=== PATIENT | female | born 1955 | race American Indian/Alaskan Native ===

== ENCOUNTER 2020-07-11 11:36 | Emergency (ER) | payer SELFPAY ==
--- NOTE | 2020-07-11 12:52 | Event Note ---
ED Screening Note Date of service: 07/11/20 Time: 12:51 ED Screening Note: 64-year-old female presents to the ED complaining of right-sided flank pain and vaginal bleeding x1 week. Status post mastectomy on chemo treatments. This initial assessment/diagnostic orders/clinical plan/treatment(s) is/are subject to change based on patients health status, clinical progression and re- assessment by fellow clinical providers in the ED. Further treatment and workup at subsequent clinical providers discretion. Patient/guardian urged not to elope from the ED as their condition may be serious if not clinically assessed and managed. Initial orders include: labs, ua,
[2020-07-11 14:51] LABS: Basophils # (Auto) 0.1 K/mm3 (0.0-0.1); Basophils % (Auto) 1.5 % (0.0-1.8); Hematocrit 30.9 % (30.3-42.9); Hemoglobin 10.4 gm/dl (10.1-14.3); Lymphocytes # (Auto) 1.3 K/mm3 (1.2-5.4); Lymphocytes % (Auto) 18.2 % (13.4-35.0); Mean Corpuscular HGB Conc 34 % (30-34); Mean Corpuscular Volume 98 fl (79-97); Monocytes # (Auto) 1.1 K/mm3 (0.0-0.8); Platelet Count 159 K/mm3 (140-440); Red Blood Count 3.14 M/mm3 (3.65-5.03); Red Cell Distribution Width 16.9 % (13.2-15.2)
[2020-07-11 15:01] LABS: Alanine Aminotransferase 27 units/L (7-56); Albumin 2.2 g/dL (3.9-5); Blood Urea Nitrogen 9 mg/dL (7-17); Hemolysis Index 4
[2020-07-11 15:38] LABS: Bilirubin,Urine MOD (Negative); Blood,Urine NEG (Negative); Color,Urine Amber (Yellow); Mucus,Urine 3+ /HPF
[2020-07-11 15:50] LABS: Ictotest,Urine Positive (Negative)
[2020-07-11 15:50] LABS: BUN/Creatinine Ratio 23
[2020-07-11 18:45] VITALS: BP 122/71
[2020-07-11] MEDS ORDERED: ONDANSETRON 4 MG/2 ML INJ IV STA (19:07)
[2020-07-11] MEDS ORDERED: MORPHINE 4 MG/1 ML INJ IV STA (19:07)
--- NOTE | 2020-07-11 21:01 | Ultrasound Report ---
Limited abdominal ultrasound INDICATION: Right upper quadrant pain FINDINGS: No gallbladder wall thickening or pericholecystic fluid. Common bile duct measures 3 mm. IMPRESSION: No acute findings are seen in the gallbladder. Signer Name: James Mann MD Signed: 07/11/2020 8:56 PM Workstation Name: [id number]
--- NOTE | 2020-07-11 22:29 | Emergency Department Report ---
ED Abdominal Pain HPI - General Chief Complaint: Abdominal Pain Stated Complaint: FLANK PAINS Time Seen by Provider: 07/11/20 17:01 Source: patient Mode of arrival: Ambulatory Limitations: No Limitations - History of Present Illness Initial Comments: 64-year-old -[place] female apparently history of hypertension, breast cancer with a right mastectomy and implantation few years ago and history of CVA about 10 years ago presents emergency department complaining of 1 week history of waxing and waning right upper quadrant pain that radiates in max 8 out of 10 when present. Pain is off and on has no specific pattern. Primary care doctor is very pain she reinjured issue she reports being in an increased amount of stress which is led to her having normal alcohol consumption seeking quite reports these notes exacerbation to tooth 3 drinks on most days been around MD Complaint: abdominal pain Location: diffuse Radiation: none Migration to: no migration Severity scale (0 -10): 4 Consistency: constant Improves With: nothing Worsens With: nothing - Related Data Previous Rx's Medication Instructions Recorded Last Taken Type Ondansetron [Zofran Odt] 4 mg PO Q8HR #14 tab.rapdis 07/11/20 Unknown Rx Potassium Chloride [K-Dur] 20 meq PO QDAY #7 tablet 07/11/20 Unknown Rx traMADoL [Ultram] 50 mg PO Q6HR PRN #14 tablet 07/11/20 Unknown Rx Allergies Allergy/AdvReac Type Severity Reaction Status Date / Time No Known Allergies Allergy Unverified 07/11/20 12:49 ED Review of Systems ROS: Stated complaint: FLANK PAINS Other details as noted in HPI Comment: All other systems reviewed and negative ED Past Medical Hx - Past Medical History Previous Medical History?: Yes Hx Hypertension: Yes Hx CVA: Yes Hx GERD: Yes Additional medical history: rt breast ca. - Surgical History Past Surgical History?: Yes Additional Surgical History: RT MASTECTOMY,MULTIPLE FX R/T TRAUMA - Social History Smoking Status: Never Smoker Substance Use Type: None - Medications Home Medications: Home Medications Medication Instructions Recorded Confirmed Last Taken Type Ondansetron [Zofran Odt] 4 mg PO Q8HR #14 tab.rapdis 07/11/20 Unknown Rx Potassium Chloride [K-Dur] 20 meq PO QDAY #7 tablet 07/11/20 Unknown Rx traMADoL [Ultram] 50 mg PO Q6HR PRN #14 tablet 07/11/20 Unknown Rx ED Physical Exam - General Limitations: No Limitations General appearance: alert, in no apparent distress - Head Head exam: Present: atraumatic, normocephalic - Eye Eye exam: Present: normal appearance, EOMI - ENT ENT exam: Present: mucous membranes moist - Neck Neck exam: Present: normal inspection - Respiratory Respiratory exam: Present: normal lung sounds bilaterally. Absent: respiratory distress - Cardiovascular Cardiovascular Exam: Present: regular rate, normal rhythm. Absent: systolic murmur, diastolic murmur, rubs, gallop - GI/Abdominal GI/Abdominal exam: Present: soft, tenderness (To the right upper quadrant with palpation), normal bowel sounds, other (Protuberant abdomen however no fluid wave normal template) - Extremities Exam Extremities exam: Present: normal inspection - Back Exam Back exam: Present: normal inspection - Neurological Exam Neurological exam: Present: alert, oriented X3 - Psychiatric Psychiatric exam: Present: normal affect, normal mood - Skin Skin exam: Present: warm, dry, intact, normal color. Absent: rash ED Course Vital Signs 07/11/20 07/11/20 12:44 16:44 Temperature 98.3 F Pulse Rate 101 H 87 Respiratory 18 Rate Blood Pressure 125/80 122/71 [Right] O2 Sat by Pulse 100 99 Oximetry ED Medical Decision Making - Lab Data Result diagrams: 07/11/20 14:24 07/11/20 14:24 - Radiology Data Radiology results: report reviewed Requesting ultrasound is negative - Medical Decision Making This patient presents with abdominal pain of unclear etiology. Their evaluation has not identified a emergent etiology for the abdominal pain. Specifically, gi shira the very benign exam, normal laboratory studies, and lack of significant risk factors, I have a very low suspicion for appendicitis, ischemic bowel, bowel perforation, or any other life threatening disease. I have discussed with the patient the level of uncertainty with undifferentiated abdominal pain and clearly explained the need to follow-up as noted on the discharge instructions, or return to the Emergency Department immediately if the pain worsens, develops fever, persistent and uncontrollable vomiting, or for any new symptoms or concerns. I discussed with the patient that this presentation today for abdominal pain could represent a significant risk for an acute abdominal process. Although the tests in the ED were essentially normal, there is still a possibility of a process such as appendicitis, diverticulitis, cholecystitis, ulcer, early bowel obstruction, mesenteric ischemia, kidney stone, or even kidney infection which could subsequently cause disability or . The patient understands that they must return within 24 hours for a recheck or see their physician within 24 hours for re-exam due to the possibility of significant surgical or medical process. Critical care attestation.: If time is entered above; I have spent that time in minutes in the direct care of this critically ill patient, excluding procedure time. ED Disposition Clinical Impression: Hypokalemia, Abdominal pain, Elevated liver enzymes Disposition: TO HOME OR SELFCARE Is pt being admited?: No Does the pt Need Aspirin: No Condition: Stable Instructions: Abdominal Pain (ED), Hypokalemia, Alcoholic Hepatitis, Abdominal Pain, Adult Additional Instructions: Be sure to follow-up with the quality nurse to evaluate the elevation in your liver enzymes it is likely related to the alcohol consumption based on the findings in your labs. Ultrasound is normal. Rest the pain medication and antinausea medication hold you over to your appointment with the gastroenterology be sure to maintain your current medication profile to prevent any further issues from develop Prescriptions: Potassium Chloride [K-Dur] 20 meq PO QDAY #7 tablet traMADoL [Ultram] 50 mg PO Q6HR PRN #14 tablet PRN Reason: Pain Ondansetron [Zofran Odt] 4 mg PO Q8HR #14 tab.rapdis Referrals: ANTHONY ORTEGA [Other] - 3-5 Days [facility] [Provider Group] - 3-5 Days
== END 2020-07-11 22:48 | disposition home or self-care (01) ==
LOC: ED 11:36
DX: E87.6 Hypokalemia (principal); R10.11 Right upper quadrant pain; R94.5 Abnormal results of liver function studies; I10 Essential (primary) hypertension; K21.9 Gastro-esophageal reflux disease without esophagitis; Z86.73 Personal history of transient ischemic attack (TIA), and cerebral infarction without residual deficits; Z98.890 Other specified postprocedural states; Z79.899 Other long term (current) drug therapy
CPT/HCPCS: 36415; 76705; 80053; 81001; 85025; 96374; 96375; 99284; J2270; J2405